=== PATIENT | female | born 1955 | race Caucasian/White ===

== ENCOUNTER → 2023-05-26 08:32 | Outpatient (REF) | payer OTHER, SELFPAY | LOC: HWRAD 08:32 | PROVIDERS: ATTENDING PHYSICIAN Internal Medicine Gastroenterology; FAMILY PHYSICIAN Family Medicine | DX: R05.9 Cough, unspecified (principal) | CPT/HCPCS: 71260; 74177; Q9967 ==

== ENCOUNTER → 2023-06-13 11:29 | Outpatient (REF) | payer OTHER, SELFPAY | LOC: HWWDC 11:29 | PROVIDERS: ATTENDING PHYSICIAN Family Medicine | DX: Z12.31 Encounter for screening mammogram for malignant neoplasm of breast (principal) | CPT/HCPCS: 77063; 77067 ==

== ENCOUNTER 2023-07-25 20:16 | Emergency (ER) | payer OTHER, SELFPAY ==
[2023-07-25 20:20] VITALS: BP 113/64
--- NOTE | 2023-07-25 23:25 | ED.GENMED ---
History of Present Illness
<DALE Austin - Last Filed: 07/26/23 00:03>
General
Chief Complaint: Skin Problem
Source: patient
Exam Limitations: none
Time Seen by Provider: 07/25/23 23:02
Nursing documentation reviewed up to this point in time: agreed with
Travel History
Have you had any contact with someone who has COVID-19?: No
Do you have any symptoms of coronavirus? Fever > 100 degrees, chills, cough, shortness of breath, sore throat, loss of taste or smell, muscle aches, or headache?: No
History of Present Illness
History of Present Illness:
patient is a 67 y/o female with PMH of fibromyalgia presenting for skin changes to her R foot x 5 days. Patient states she had a callus removed by her assistant teaching professor on 07/18/23. Patient on day 4 post op she took the skin mold off that was covering it
and ever since then she has had extreme pain that radiates throughout her body. Patient admits that the pain feels as though its a fibromyalgia flare up, however this has never occurred with a previous callus removal before. Patient admits the pain
surrounding the removal site is a stinging pain that she states feels deep in her foot. Patient admits to taking Tylenol and achieve earlier in the week for pain but no pain medications today. Patient states that earlier this morning the patient
also noticed some redness around the callus removal which prompted her to go to her assistant teaching professor today. [employer] Counter Person confirmed with her that this was not an infection. Patient then went to work and when she returned she noticed a dark ring surrounding
the infection. Patient denies N/V/D/C, fever, chills, pruritus, bleeding, pus, weakness. Patient denies any trauma to the foot since the procedure. Patient presented with purple ring around incision area. Alcohol wipe on the area showed purple dye
and marker residue.
Past History
<DALE Austin - Last Filed: 07/26/23 00:03>
Past History
ED Past Medical History: GERD and Other (Vertigo, fibromyalgia, sciatica, IBS, diverticulitis/colitis)
ED Past Surgical History: Other (Endometriosis)
Social History
Tobacco: Former smoker
Alcohol: Occasional
Drug: None
Personal:
Living: alone
Review of Systems
<DALE Austin - Last Filed: 07/26/23 00:03>
Review of Systems
All Other Systems: Not applicable
Constitutional: Reports other (diffuse pain radiating from foot )
EENT: Reports no symptoms
Respiratory: Reports no symptoms
Cardiac: Reports no symptoms
ABD/GI: Reports no symptoms
: Reports no symptoms
Musculoskeletal: Reports other (pain)
Skin: Reports other (redness and inflammation around callus)
Neurological: Reports no symptoms
Endocrine: Reports no symptoms
Hematologic/Lymphatic: Reports no symptoms
Psychiatric: Reports no symptoms
Phy Exam
<DALE Austin - Last Filed: 07/26/23 00:03>
Physical Exam
Physical Exam:
incision site with purple marking surrounding it
Skin Exam
Skin Exam: other (purple circular ring that can be cleaned off with wipe )
Course
<DALE Austin - Last Filed: 07/26/23 00:03>
Vital Signs
Initial and Last Documented VS:
Initial Vital Signs
Temp Pulse Resp BP Pulse Ox
98.0 F 59 16 113/64 99
07/25/23 20:20 07/25/23 20:20 07/25/23 20:20 07/25/23 20:20 07/25/23 20:20
Last Documented Vital Signs
Temp Pulse Resp BP Pulse Ox
98.0 F 59 16 113/64 99
07/25/23 20:20 07/25/23 20:20 07/25/23 20:20 07/25/23 20:20 07/25/23 20:20
<Endy Devries DO - Last Filed: 07/25/23 23:49>
Vital Signs
Initial and Last Documented VS:
Initial Vital Signs
Temp Pulse Resp BP Pulse Ox
98.0 F 59 16 113/64 99
07/25/23 20:20 07/25/23 20:20 07/25/23 20:20 07/25/23 20:20 07/25/23 20:20
Last Documented Vital Signs
Temp Pulse Resp BP Pulse Ox
98.0 F 59 16 113/64 99
07/25/23 20:20 07/25/23 20:20 07/25/23 20:20 07/25/23 20:20 07/25/23 20:20
<DALE Austin - Last Filed: 07/26/23 00:03>
MDM/Problems Addressed
Differential Diagnosis Includes:
marker around site of incision
infection
MDM/Problems Addressed:
R foot pain
<DALE Austin - Last Filed: 07/26/23 00:03>
*Critical Care Note
Total Time (30-74mins, 75-104mins- exclusive of procedures): Not Applicable
ED Attending Note
<DALE Austin - Last Filed: 07/26/23 00:03>
-
Portions of this chart may have been created with voice recognition software.� Occasional wrong word or��sound alike� substitutions may have occurred due to the inherent limitations of voice recognition software.
<Endy Devries DO - Last Filed: 07/25/23 23:49>
ED Attending Note
Patient seen and examined by attending physician: Yes
I performed the substantive portion of visit, reviewed & personally made and approve the management plan that is documented in note by myself or KAREN.: Yes
ED Attending Note:
Pleasant 67-year-old female presents with pain from a callus removal on July 17. Today is postop day 4. She noticed a blue trinity that encircled the callus operative site. She saw her assistant teaching professor this morning who confirmed to her that there was no
infection. When she got home she saw a blue trinity around the operative site. It turns out that the assistant teaching professor had marked the site with a surgical marker. She did not realize this and when she saw the marker she thought it was an infection. The
assistant teaching professor's trinity was easily removed with an alcohol wipe. Patient was seen in conjunction with the PA student. I have reviewed and agree with the history and treatment plan presented. On my independent physical exam, patient is awake, alert, and
oriented x3, she is anxious. The wound is clean and dry. No signs of erythema or cellulitis. The patient refused pain medication she wants to take her own Aleve at home. Patient being discharged in improved condition.
Discharge Plan
Departure
Patient Disposition: Home (Routine Discharge)
Date of Disposition: 07/25/23
Time of Disposition: 23:46
Patient with high blood pressure during this ER visit?: No
Condition: Good
Discharge Problem:
Post-operative pain
Instructions: Wound Care (DC), Postoperative Pain (DC)
Prescriptions:
No Action
cholecalciferol (vitamin D3) 1,000 UNITS tablet
1,000 units PO BID
Hair, Skin and Nails Advanced 1 EACH tablet
1 ea PO BID
cyclosporine [Restasis] 10 DROPS dropperette
1 drp BOTH EYES BID
Soothe Eye Drops
1 drp BOTH EYES PRN PRN (Reason: dry eyes)
polyethylene glycol 3350 17 GRAMS powder in packet
17 grams PO DAILY 0RF
famotidine 20 MG tablet
20 mg PO BID Qty: 30 0RF
pantoprazole [Protonix] 40 mg tablet,delayed release (DR/EC)
40 mg PO DAILY Qty: 30 0RF
Referrals:
Dominga El MD [Family Provider] -
Activity Restrictions/Additional Instructions:
It was a pleasure meeting you and taking part in your care. We hope for your continued healing and wellness.
Please read discharge instructions in their entirety. However, they are for general education and may not describe your exact diagnosis at discharge. Information on your ER visit and medical conditions were discussed with you along with appropriate
follow up information...
If indicated, please take your medications as instructed and indicated on discharge paperwork.
Please schedule a follow up appointment as directed. Call to schedule an appointment
Please return to the emergency department with ANY change in, persisting, or worsening of symptoms. If any of your symptoms do not improve, or persist, or become more severe within 6-12 hours, please return to the emergency department for further
care.
Please return to the emergency department if you develop a headache, neck pain/stiffness, fever greater than 100.4F, chest pain, shortness of breath, persistent nausea, vomiting, slurred speech, difficulty walking, numbness/tingling, weakness, signs
of infection or any other symptoms that are worrisome to you.
If you have any questions or concerns please do not hesitate to call the Hospital at or E-mail me directly at [email or web address]
Interventions
Interventions:
*Risk Screen - Suicide Last Done: 07/25/23 20:20
*General Assessment Last Done: 07/25/23 20:20
*Neglect/Abuse Screening Last Done: 07/25/23 20:20
ED- Fall Risk Assessment Last Done: 07/25/23 22:17
*ED COVID-19 Vaccine History Last Done: 07/25/23 20:20
ED-Skin Assessment Last Done: 07/25/23 22:17
Discharge Date and Time
Print Language: BULGARIAN
== END 2023-07-26 | disposition home or self-care (01) ==
LOC: EMR 20:16
PROVIDERS: EMERGENCY PHYSICIAN Student in an Organized Health Care Education/Training Program; FAMILY PHYSICIAN Family Medicine
DX: G89.18 Other acute postprocedural pain (principal); M79.671 Pain in right foot; K21.9 Gastro-esophageal reflux disease without esophagitis; M79.7 Fibromyalgia; K58.9 Irritable bowel syndrome, unspecified; K52.9 Noninfective gastroenteritis and colitis, unspecified; K57.92 Diverticulitis of intestine, part unspecified, without perforation or abscess without bleeding; Z87.891 Personal history of nicotine dependence; Z88.1 Allergy status to other antibiotic agents; Z88.5 Allergy status to narcotic agent
CPT/HCPCS: 99282

== ENCOUNTER → 2023-08-22 09:08 | Outpatient (REF) | payer OTHER, SELFPAY | LOC: HWRCS 09:08 | PROVIDERS: ATTENDING PHYSICIAN Internal Medicine Cardiovascular Disease; FAMILY PHYSICIAN Family Medicine | DX: R01.1 Cardiac murmur, unspecified (principal) | CPT/HCPCS: 93306 ==

== ENCOUNTER → 2023-10-27 11:16 | Outpatient (REF) | payer OTHER, SELFPAY | LOC: HWRAD 11:16 | PROVIDERS: ATTENDING PHYSICIAN Family Medicine | DX: M81.8 Other osteoporosis without current pathological fracture (principal) | CPT/HCPCS: 77080 ==

== ENCOUNTER → 2023-12-23 12:54 | Outpatient (REF) | payer OTHER, SELFPAY | LOC: MRI 3T 12:54 | PROVIDERS: ATTENDING PHYSICIAN Podiatrist Foot Surgery; FAMILY PHYSICIAN Family Medicine | DX: M79.671 Pain in right foot (principal) | CPT/HCPCS: 73718 ==

== ENCOUNTER → 2024-07-19 08:24 | Outpatient (REF) | payer OTHER, SELFPAY | LOC: REG 08:24 | PROVIDERS: ATTENDING PHYSICIAN Nurse Practitioner Family | DX: R06.02 Shortness of breath (principal) | CPT/HCPCS: 71046 ==

== ENCOUNTER → 2024-08-05 09:39 | Outpatient (REF) | payer OTHER, SELFPAY | LOC: HWWDC 09:39 | PROVIDERS: ATTENDING PHYSICIAN Nurse Practitioner Family; REFERRING PHYSICIAN Obstetrics & Gynecology Gynecology | DX: Z12.31 Encounter for screening mammogram for malignant neoplasm of breast (principal) | CPT/HCPCS: 77063; 77067 ==

== ENCOUNTER 2024-12-02 22:17 | Observation (INO) | payer OTHER, SELFPAY ==
[2024-12-02] VITALS (16 sets, daily range): BP systolic 74–110; BP diastolic 41–82; PULSE 96–115; BMI 24.8; BMI 23.5
--- NOTE | 2024-12-02 17:25 | ED.GENMED ---
History of Present Illness
General
Chief Complaint: Blood Pressure Problem
Source: patient
Exam Limitations: none
Time Seen by Provider: 12/02/24 17:07
Nursing documentation reviewed up to this point in time: agreed with
History of Present Illness
History of Present Illness:
Patient presents to ED secondary to severe generalized weakness and fatigue with multiple episodes of near syncope, after having had countless number of diarrhea, since this morning. Of note, 3 days ago, while she was at work, patient reports
'upset stomach', followed by bowel movement. Over the next 2 days, patient states that her symptoms had resolved and she had normal diet, until this morning. Denies fever or chills. Denies chest pain or shortness of breath. Patient reports
squeezing sensation in her stomach. Denies trauma. Denies sick contact. Denies recent travel. Of note, patient is currently on tapered dose of prednisone, down to 6 mg daily, secondary to polymyalgia rheumatica.
Past History
Past History
ED Past Medical History: GERD and Other (Vertigo, fibromyalgia, sciatica, IBS, diverticulitis/colitis)
ED Past Surgical History: Other (Endometriosis)
Social History
Tobacco: Former smoker
Alcohol: Occasional
Drug: None
Personal:
Living: alone
Review of Systems
Review of Systems
Allergies reviewed?: Yes
All Other Systems: ROS reviewed and negative except as documented in HPI and ROS
Constitutional: Reports no symptoms; Denies fever
Respiratory: Reports no symptoms
Cardiac: Reports no symptoms
ABD/GI: Reports abdominal pain, nausea and diarrhea; Denies vomiting
Musculoskeletal: Reports no symptoms
Skin: Reports no symptoms
Neurological: Reports weakness
Phy Exam
Physical Exam
Physical Exam:
Physical Exam
General: mild distress, not acutely ill. afebrile
Head: nc/at. eomi
Neck: supple. no meningeal signs.
Heart: tachycardic without murmur.
Lungs: no acute respiratory distress. clear bilaterally
Abdomen: normal bowel sounds. not tender. no distention
Neuro: alert and oriented x 3. no focal neurological deficits
Skin: no rash
Psychiatric: well kept. interactive and cooperative
Extremities: no edema. no calf tenderness.
Course
Orders/Labs/Results
Orders:
Orders
12/02/24 17:14
Complete Blood Count/With Diff Urgent
Comprehensive Metabolic Panel Urgent
Magnesium Urgent
Comment: ADD ON
12/02/24 17:22
Add On- LAB Urgent
Tests Added?: magnesium
12/02/24 17:23
0.9% Sodium Chloride 1000 ml [Nss] 1,000 ml IV BOLUS
12/02/24 19:32
Calcium 200mg(Ca. Carb. 500mg) [Tums Chewable Tablet] 200 mg PO NOW STA
12/02/24 20:50
Stool Culture Urgent
NAYA Source: Feces/Stool
Specimen Description:
Date Specimen was Collected: 12/02/24
Time Specimen was Collected: 20:45
12/02/24 21:00
0.9% Sodium Chloride 500 ml [Nss] 500 ml IV 100 mls/hr
12/02/24 21:39
Admit/Transfer Patient As Directed
Co-Sign Provider:
Level of Care: Observation services
Assign to:: Medical/Surgical
Physician / Group: Dorie
Diagnosis: Gastroenteritis
PRN Pain Medication Management As Directed
May give lesser potent ordered pain med per pt: Yes
preference::
Protocol:: Medication orders for pain may be administered in a
manner that supports deferring to patient preference
when the pt is:
- Requesting an ordered lesser potent pain medication.
Least to most potent pain medications are defined
as: acetaminophen < NSAID < tramadol < opioids
(morphine, oxycodone, hydromorphone).
- Requesting a lesser dose of the same medication IF
ORDERED.
- Requesting a less intrusive route of administration
if both routes are prescribed by the provider (PO <
IV).
12/02/24 21:40
Code Status As Directed
Resuscitation Status: Full Code
Abnormal Lab Results
12/02/24
17:14
WBC 23.0 H 10^3/uL
(4.8-10.8)
RBC 4.18 L 10^6/uL
(4.20-5.40)
MCHC 32.4 L g/dL
(33.0-37.0)
Abs Immat Gran (auto) 0.1 H 10^3/uL
(0-0.05)
Absolute Neuts (auto) 20.4 H 10^3/uL
(1.4-6.5)
Absolute Lymphs (auto) 0.6 L 10^3/uL
(1.2-3.4)
Absolute Monos (auto) 1.9 H 10^3/uL
(0.1-0.6)
Neutrophils % 88.6 H %
(42.2-75.2)
Lymphocytes % 2.4 L %
(20.5-51.1)
BUN 18 H mg/dl
(7-17)
Glucose 124 H mg/dl
(70-99)
12/02/24 17:14
12/02/24 17:14
Vital Signs
Initial and Last Documented VS:
Initial Vital Signs
Temp Pulse Resp BP Pulse Ox
98.6 F 96 16 85/48 96
12/02/24 16:59 12/02/24 16:59 12/02/24 16:59 12/02/24 16:59 12/02/24 16:59
Last Documented Vital Signs
Temp Pulse Resp BP Pulse Ox
98.6 F 94 17 100/63 98
12/02/24 16:59 12/02/24 21:30 12/02/24 21:30 12/02/24 21:30 12/02/24 19:45
MDM/Problems Addressed
MDM/Problems Addressed:
History and exam consistent with significant dehydration from severe diarrhea. Patient remains symptomatic with positive orthostatic vital signs, despite receiving 2 L IV fluids. As such, patient will be admitted for further evaluation and
treatment, including continue IV hydration.
Stool culture pending.
*Pulse Oximetry
SaO2: 96
Oxygen Mode of Delivery: Room air
Patient hypoxic: no
*Critical Care Note
Total Time (30-74mins, 75-104mins- exclusive of procedures): Not Applicable
ED Attending Note
-
Portions of this chart may have been created with voice recognition software.� Occasional wrong word or��sound alike� substitutions may have occurred due to the inherent limitations of voice recognition software.
Discharge Plan
Departure
Patient Disposition: Admit
Date of Disposition: 12/02/24
Time of Disposition: 20:45
Admit to: Med/Surg
Presentation/result/management discussed w/ accepting MD/DO: Hospitalist
Discharge Problem:
Orthostatic hypotension, Diarrhea
Interventions
Interventions:
*Risk Screen - Suicide Last Done: 12/02/24 16:59
*General Assessment Last Done: 12/02/24 16:59
*Neglect/Abuse Screening Last Done: 12/02/24 16:59
*ED- Fall Risk Assessment Last Done: 12/02/24 16:59
*ED COVID-19 Vaccine History Last Done: 12/02/24 16:59
*Nursing Disposition Last Done: 12/02/24 23:02
ED- Cardiac Assessment Last Done: 12/02/24 17:30
ED- Neurological Assessment Last Done: 12/02/24 17:30
ED- Pulmonary Assessment Last Done: 12/02/24 17:30
[2024-12-02 17:39] LABS: ALT (SGPT) 26 U/L (0-35); AST (SGOT) 31 U/L (14-36); Albumin 3.8 g/dl (3.5-5.0); Alkaline Phosphatase 122 U/L (38-126); Blood Urea Nitrogen 18 mg/dl (7-17); Calcium 9.2 mg/dl (8.4-10.2); Carbon Dioxide 24 mmol/L (22-30); Chloride 103 mmol/L (98-107); Estimated Creatinine Clearance 60 ml/min; Glucose 124 mg/dl (70-99); Hematocrit 37.6 % (37.0-47.0); Hemoglobin 12.2 g/dL (12.0-16.0); Magnesium 2.3 mg/dl (1.6-2.3); Mean Corp Hgb Conc. 32.4 g/dL (33.0-37.0); Mean Corpuscular Volume 90.0 fL (81.0-99.0); Platelet Count 274 10^3/uL (130-400); Potassium 4.0 mmol/L (3.5-5.1); Red Cell Dist. Width 13.9 % (11.5-14.5); Sodium 136 mmol/L (135-145); Total Protein 6.3 g/dl (6.3-8.2); eGFR > 60.00
[2024-12-02] MEDS: NSS 1000 IV (18:02)
[2024-12-02 18:24] LABS: Nucleated Red Blood Cells % 0 %
[2024-12-02] MEDS: TUMS CHEWABLE TABLET 200 MG PO (19:41)
[2024-12-02] MEDS: NSS 500 IV (20:58)
--- NOTE | 2024-12-02 21:18 | HPS.HSE ---
Family Physician
-
Family Physician: Dominga El MD
Chief Complaint
-
Dizziness
History of Present Illness
This is a 69-year-old female with past medical history significant for irritable bowel syndrome, fibromyalgia, polymyalgia rheumatica for which she is on a prednisone taper presenting to the emergency department with acute episode of diarrhea
lightheadedness dizziness and weakness with collapse at home.
Patient reported that she had last regular meal on Monday when she developed some abdominal discomfort. She had mild nausea but no vomiting. She was able to tolerate p.o. on Monday. However by Monday morning she started having profuse diarrhea.
She reports having diarrheal episode every 15 minutes up until around 4 PM. At 4 PM she attempted to hydrate herself. When she got up to walk to her kitchen for some water she felt very lightheaded and then her legs just gave way. She denied
passing out. She was feeling so weak and she said to call 911.
She has not had any fevers or chills. She denies any recent antibiotic use. She has no prior history of inflammatory bowel disease, GI bleed or any recent colonoscopy.
In the emergency department patient was afebrile, blood pressure was 90/50 but as low as 70 systolic with ambulation. She was tachycardic to the low 100. She has a white count of 23, hemoglobin and platelets were normal. Electrolytes BUN and
creatinine were in the normal range.
Medical History
Past Medical History
Past Medical History: Reports Other (Polymyalgia rheumatica, irritable bowel syndrome, idiopathic hypotension, GERD)
Past Surgical History: Reports Gynocological
Social History
Tobacco: Non-smoker
Alcohol: None
Drug: None
Family History
Family History: Not pertinent
Allergies / Home Medications
Allergies reflects when Allergies were last updated in [facility].
Home Medications with original date entered in [facility]
Allergy/Medication List:
Allergies
Allergy/AdvReac Type Severity Reaction Status Date / Time
levofloxacin (From Levaquin) Allergy Unknown Verified 07/25/23 20:20
metronidazole (From Flagyl) Allergy Unknown Verified 07/25/23 20:20
hydrocodone (From Vicodin) AdvReac stomach Verified 07/25/23 20:20
pain
Home Medications
carboxymethylcellulose 0.5 %-glycerin 0.9 % eye drops (Refresh Optive) 1 drp BOTH EYES Q2H ##0 11/14/20
cyclosporine 0.05 % eye drops in a dropperette (Restasis) 1 drp BOTH EYES BID Eye condition 11/14/20
famotidine 20 mg tablet 20 mg PO BID #30 tabs 11/17/20
acetaminophen 325 mg tablet (Tylenol) 650 mg PO Q6HPRN PRN mild pain 12/02/24
calcium 500 mg (as carbonate)-vitamin D3 10 mcg (400 unit) tablet (Calcium 500 + D) 1 tab PO DAILY 12/02/24
magnesium chloride 71.5 mg (magnesium chloride) tablet,delayed release (Slow-Mag) 71.5 mg PO DAILY 12/02/24
nortriptyline 10 mg capsule 10 mg PO HS 12/02/24
polyethylene glycol 3350 17 gram oral powder packet 17 grams PO Q48H 12/02/24
prednisone 1 mg tablet 6 mg PO DAILY 12/02/24
Review of Systems
-
Constitutional: Reports No Symptoms
EENT: Reports No Symptoms
Respiratory: Reports No Symptoms
Cardiac: Reports No Symptoms
Abdomen/GI: Reports Nausea and Diarrhea
: Reports No Symptoms
Musculoskeletal: Reports No Symptoms
Skin: Reports No Symptoms
Neurological: Reports Dizzy and Weakness
Endocrine: Reports No Symptoms
Hematologic/Lymphatic: Reports No Symptoms
Psych: Reports No Symptoms
Physical Exam
Vital Signs
Vital Signs
Temp Pulse Resp BP Pulse Ox
98.6 F 97 14 93/50 98
12/02/24 16:59 12/02/24 21:00 12/02/24 21:00 12/02/24 21:00 12/02/24 19:45
Physical Exam
General: Well Developed, Well Nourished and No Apparent Distress
HEENT: NormoCephalic, Moist mucous membranes and Atraumatic
Respiratory: Clear
Cardiac: S1/S2 and Regular Rhythm; No Murmur or Rub
GI: Soft, Non Tender, Non Distended and Normal Bowel Sounds; No Organomegaly
Rectal: Deferred by Provider
Musculoskeletal: No Clubbing, No Cyanosis and No Edema
Skin: No Rash
Neuro: Nonfocal/grossly intact
Laboratory Results
-
12/02/24 17:14
12/02/24 17:14
Laboratory Results
Total Bilirubin 0.6 mg/dl (0.2-1.3) 12/02/24 17:14
AST 31 U/L (14-36) 12/02/24 17:14
ALT 26 U/L (0-35) 12/02/24 17:14
Alkaline Phosphatase 122 U/L (38-126) 12/02/24 17:14
Data Reviewed
-
Lab Data: Labs Reviewed by me
Old Records: Reviewed
Impression/Plan
-
IMPRESSION:
69-year-old female with history of irritable bowel syndrome and polymyalgia presented to the emergency department with 1 day history of severe profuse diarrhea, leukocytosis to 23 and orthostatic hypotension. She has orthostatic dizziness. She has
continued to have diarrhea in the emergency department although he has slowed down to less than once an hour. She is afebrile and nontoxic-appearing otherwise. She has no cardiac history.
PLAN:
Gastroenteritis -Food poisoning versus viral enteritis.
-Admit to MedSurg observation
-Stool cultures pending
-No recent antibiotics use, did not get CT
-Continue IV fluids while she is having diarrhea, continue with normal saline for now
-Orthostatic vital signs
-Will start Imodium if stool cultures are negative
-Antiemetics
-H2 catarino twice daily
Orthostatic hypotension -patient is likely orthostatic from dehydration, however she has been on chronic prednisone taper for her polymyalgia and could be adrenal insufficiency
- Check a.m. cortisol
- IV fluids as above
- Continue prednisone 5 for now
DVT prophy�SCDs
CODE STATUS�full code
[2024-12-03] MEDS: TYLENOL 650 MG PO (00:07)
[2024-12-03] MEDS: NSS 1000 IV (00:19)
[2024-12-03] MEDS: PEPCID 20 MG PO ×3 (00:19→21:05)
[2024-12-03] MEDS: PAMELOR 10 MG PO ×2 (00:20→21:06)
--- NOTE | 2024-12-03 01:00 | PTCARENOTE ---
Patient arrived from the ED via stretcher at approximately 2320. Patient stood and pivoted from stretcher to bed w/ one person assist - gait steady but patient complaining of mild dizziness. AAOx3, anxious @ times. VSS as documented. Assessment as
documented. Patient oriented to room. Bed in lowest position. Call turner within reach.
[2024-12-03] MEDS: TUMS CHEWABLE TABLET 200 MG PO (06:36)
[2024-12-03 06:58] LABS: Hematocrit 32.7 % (37.0-47.0); Hemoglobin 10.8 g/dL (12.0-16.0); Mean Corp Hgb Conc. 33.0 g/dL (33.0-37.0); Mean Corpuscular Volume 89.6 fL (81.0-99.0); Platelet Count 268 10^3/uL (130-400); Red Cell Dist. Width 14.2 % (11.5-14.5)
[2024-12-03 07:00] VITALS: BP 93/47
[2024-12-03 07:24] LABS: Blood Urea Nitrogen 12 mg/dl (7-17); Calcium 8.4 mg/dl (8.4-10.2); Carbon Dioxide 23 mmol/L (22-30); Chloride 111 mmol/L (98-107); Estimated Creatinine Clearance 81 ml/min; Glucose 90 mg/dl (70-99); Magnesium 2.2 mg/dl (1.6-2.3); Potassium 4.5 mmol/L (3.5-5.1); Sodium 137 mmol/L (135-145); eGFR > 60.00
[2024-12-03 07:47] LABS: Cortisol, Random 6.8 ug/dl
[2024-12-03] MEDS: RESTASIS 0.05% OPHTHALMIC EMULSION 1 DROPS BOTH EYES (09:08)
[2024-12-03] MEDS: DELTASONE 5 MG PO (09:08)
[2024-12-03] MEDS: DELTASONE 1 MG PO (09:09)
--- NOTE | 2024-12-03 13:44 | CM ---
CM following re: discharge planning.
Reviewed pt's chart, met with pt.
Pt is a 69 year old female, admitted with OBS status and primary dx of Gastroenteritis -Food poisoning versus viral enteritis. OBS status explained to the pt, pt expressed her understanding, declined to sign. GARCIA letter placed on chart, pt has a
copy.
Pt reports she lives alone in a condo, no steps, has supportive son who lives in [place], has supportive friends. Pt described herself as independent in al areas [employer], drives, works.
PCP: Dominga El
Pharmacy: [facility]
D/C plan: home with anticipated no needs.
CM will follow with discharge plan updates as hospitalization progresses
--- NOTE | 2024-12-03 14:19 | W.PN.HOSP.TC ---
Today's Communication/Plan
-
Continue oral intake, monitor orthostatic VS, Imodium as needed
Assessment / Plan
Assessment / Plan
69F with IBS and polymyalgia P/W diarrhea, found to have leukocytosis and orthostatic hypotension with dizziness.
Gastroenteritis -Food poisoning versus viral enteritis.
-Stool cultures pending
-No recent antibiotics use, did not get CT
- Received IV fluids and now she does not have an IV anymore so she request to just drink fluids by mouth
start Imodium
-Antiemetics
-H2 catarino twice daily
Orthostatic hypotension -patient is likely orthostatic from dehydration, however she has been on chronic prednisone taper for her polymyalgia and could be adrenal insufficiency
- Checked a.m. cortisol, wnl
- s/p IV fluids as above
- Continue prednisone 5 for now
Encouraged oral intake
DVT prophy�SCDs
CODE STATUS�full code
Anticipated Discharge: Within 24 hours
Subjective/Interval History
-
Date of Service: December 03, 2024
Patient reports some improvement in her diarrhea and dizziness
Objective Data
-
Labs:
Laboratory Results
12/03/24
06:11
WBC 13.7 H
Hgb 10.8 L
Hct 32.7 L
Plt Count 268
Sodium 137
Potassium 4.5
Chloride 111 H
Carbon Dioxide 23
BUN 12
Creatinine 0.6
Glucose 90
Calcium 8.4
Vital Signs:
Vital Signs
Temp Pulse Resp BP Pulse Ox
98 F 66 20 93/47 98
12/03/24 07:00 12/03/24 07:00 12/03/24 07:00 12/03/24 07:00 12/03/24 07:00
I&O
12/02/24 12/03/24 12/04/24
06:59 06:59 06:59
Intake Total 480 / 480
Balance 480 / 480
Review of Systems
-
All other systems: Reviewed and negative
Physical Exam
-
General: No Apparent Distress
HEENT: Moist Mucous Membranes, Anicteric and PERRLA
Respiratory: Clear to Auscultation; Negative Wheezes, Rales or Rhonchi
Cardiac: Regular Rhythm, S1/S2 and Murmur; Negative Rub or Gallop
GI: Soft, Nontender, Nondistended and Normal Bowel Sounds
Musculoskeletal: No Edema
Skin: Warm and Dry; Negative Rash, Ulcers or Lesions
Neuro: Awake and AO x 3
Hematologic / Lymphatic: No Lymphadenopathy
Psych: Calm
Data Reviewed
-
Labs: Labs Reviewed by me and Discussed with Patient
[2024-12-03 15:01] VITALS: BP 108/53
[2024-12-03 16:01] VITALS: BP 101/58; BP 102/55; BP 108/53; PULSE 68; PULSE 74; PULSE 85
[2024-12-03] MEDS: RESTASIS 0.05% OPHTHALMIC EMULSION BOTH EYES (20:11)
[2024-12-03 23:08] VITALS: BP 111/53
--- NOTE | 2024-12-04 03:28 | DOWNTIME ---
There was a [employer] Downtime on 12/04/2024 from 0100 to 12/04/2024 at 0235. Downtime documentation of patient's care, including medication administrations, has been reconciled in the electronic record per guidelines. Refer to the
patient's paper chart under the miscellaneous tab to see printed paper medication records and downtime forms.
[2024-12-04 07:00] VITALS: BP 102/79
[2024-12-04 07:16] LABS: Hematocrit 35.9 % (37.0-47.0); Hemoglobin 11.4 g/dL (12.0-16.0); Mean Corp Hgb Conc. 31.8 g/dL (33.0-37.0); Mean Corpuscular Volume 90.2 fL (81.0-99.0); Nucleated Red Blood Cells % 0 %; Platelet Count 277 10^3/uL (130-400); Red Cell Dist. Width 14.1 % (11.5-14.5)
[2024-12-04 07:47] LABS: ALT (SGPT) 30 U/L (0-35); AST (SGOT) 32 U/L (14-36); Albumin 3.7 g/dl (3.5-5.0); Alkaline Phosphatase 93 U/L (38-126); Blood Urea Nitrogen 13 mg/dl (7-17); Calcium 8.6 mg/dl (8.4-10.2); Carbon Dioxide 26 mmol/L (22-30); Chloride 109 mmol/L (98-107); Estimated Creatinine Clearance 69 ml/min; Glucose 84 mg/dl (70-99); Potassium 4.0 mmol/L (3.5-5.1); Sodium 139 mmol/L (135-145); Total Protein 6.2 g/dl (6.3-8.2); eGFR > 60.00
[2024-12-04] MEDS: RESTASIS 0.05% OPHTHALMIC EMULSION BOTH EYES (08:40)
[2024-12-04] MEDS: PEPCID PO (08:40)
[2024-12-04] MEDS: DELTASONE 5 MG PO (08:40)
[2024-12-04] MEDS: DELTASONE 1 MG PO (08:40)
--- NOTE | 2024-12-04 10:00 | W.DCSUMMARY ---
Discharge Summary
Discharge Data
Date of Admission: 12/02/24
Date of Discharge: 12/04/24
Total time spent discharging patient (in min): 31
-
Pending Results: Yes (Final Stool studies)
Hospital Course
Disposition :
Home
Principal Discharge diagnosis :
Gastroenteritis
Orthostatic hypotension
Hospital Course :
69F with IBS and polymyalgia P/W diarrhea, found to have leukocytosis and orthostatic hypotension with dizziness.
Patient was found to have viral enteritis versus food poisoning, treated without any antibiotics, received IV fluids, and encouraged to take p.o., was able to tolerate normal diet, and diarrhea improved. Leukocytosis resolved. After IV fluids
orthostatic hypotension resolved. Cortisol levels were within normal limits.
Discharge exam:
General: No Apparent Distress
HEENT: Moist Mucous Membranes, Anicteric and PERRLA
Respiratory: Clear to Auscultation; Negative Wheezes, Rales or Rhonchi
Cardiac: Regular Rhythm, S1/S2 and Murmur; Negative Rub or Gallop
GI: Soft, Nontender, Nondistended and Normal Bowel Sounds
Musculoskeletal: No Edema
Skin: Warm and Dry; Negative Rash, Ulcers or Lesions
Neuro: Awake and AO x 3
Hematologic / Lymphatic: No Lymphadenopathy
Psych: Calm
Discharge Plan
-
Patient Disposition: Home (Routine Discharge)
Discharge Diagnosis/Procedures: Gastroenteritis
Diet: Regular
Activity: No restrictions
Driving Restrictions: As prior to admission
Instructions: Diarrhea in adults - ED discharge instructions
Referrals:
Dominga El MD [Family Provider, Family Practice]
Prescriptions:
Continued
cyclosporine [Restasis] 10 DROPS dropperette
1 drp BOTH EYES BID
Refresh Optive 0.5-0.9 % Drops
1 drp BOTH EYES Q2H Qty: 0
famotidine 20 MG tablet
20 mg PO BID Qty: 30 0RF
acetaminophen [Tylenol] 325 mg Tablet
650 mg PO Q6HPRN PRN (Reason: mild pain)
prednisone 1 mg Tablet
6 mg PO DAILY
nortriptyline 10 mg Capsule
10 mg PO HS
calcium carbonate-vitamin D3 [Calcium 500 + D] 500 mg-10 mcg (400 unit) Tablet
1 tab PO DAILY
Slow-Mag 71.5 mg Tablet,Delayed Release (Dr/Ec)
71.5 mg PO DAILY
polyethylene glycol 3350 17 GRAMS powder in packet
17 grams PO Q48H
Discharge Orders:
Discharge Patient (As Directed); Ordered 12/04/24
Ordered By: Susu Jiménez
Discharge Date and Time
Print Language: CITIZEN OF [place]
--- NOTE | 2024-12-04 10:47 | CM ---
CM following re: discharge planning.
Reviewed pt's chart, met with [pt.
Discharge order noted. Pt is awre and she stated her therapeutic recreation director will transport home after 12:00 p.m. Pt still OBS status.
No after care VN services indicated.
D/C plan: home no needs. Plumbing Instructor to transport.
[2024-12-04 11:00] VITALS: BP 111/60
--- NOTE | 2024-12-04 11:52 | PTCARENOTE ---
Patient discharged home, transported by friend. No IV or tele pack on patient, vitals taken by tech stable. This RN reviewed discharge instructions with patient who verbalized understanding. Patient dressed and gathered belongings independently.
Patient taken down to main lobby via staff escort and wheelchair.
== END 2024-12-04 12:36 | disposition home or self-care (01) ==
LOC: 2 NORTH 22:17
PROVIDERS: ADMITTING PHYSICIAN Internal Medicine; ATTENDING PHYSICIAN Internal Medicine; EMERGENCY PHYSICIAN Emergency Medicine; FAMILY PHYSICIAN Family Medicine
DX: K52.9 Noninfective gastroenteritis and colitis, unspecified (principal); I95.1 Orthostatic hypotension; M35.3 Polymyalgia rheumatica; Z87.891 Personal history of nicotine dependence; Z79.899 Other long term (current) drug therapy; Z79.52 Long term (current) use of systemic steroids
CPT/HCPCS: 80048; 80053; 82533; 83735; 85025; 85027; 87045; 87046; 87427; 96360; 99285; G0378

== ENCOUNTER 2024-12-05 21:44 | Emergency (ER) | payer OTHER, SELFPAY ==
[2024-12-05 22:15] VITALS: BP 119/75
[2024-12-05 22:43] LABS: Hematocrit 36.9 % (37.0-47.0); Hemoglobin 12.0 g/dL (12.0-16.0); Mean Corp Hgb Conc. 32.5 g/dL (33.0-37.0); Mean Corpuscular Volume 88.7 fL (81.0-99.0); Nucleated Red Blood Cells % 0 %; Platelet Count 329 10^3/uL (130-400); Red Cell Dist. Width 13.9 % (11.5-14.5)
[2024-12-05 23:03] LABS: ALT (SGPT) 33 U/L (0-35); AST (SGOT) 30 U/L (14-36); Albumin 4.7 g/dl (3.5-5.0); Alkaline Phosphatase 87 U/L (38-126); Blood Urea Nitrogen 19 mg/dl (7-17); Calcium 10.1 mg/dl (8.4-10.2); Carbon Dioxide 23 mmol/L (22-30); Chloride 103 mmol/L (98-107); Glucose 103 mg/dl (70-99); Lipase 100 U/L (23-300); Potassium 3.9 mmol/L (3.5-5.1); Sodium 138 mmol/L (135-145); Total Protein 7.7 g/dl (6.3-8.2); eGFR > 60.00
[2024-12-06 01:34] VITALS: BMI 23.9
[2024-12-06 01:38] VITALS: BP 118/67
--- NOTE | 2024-12-06 01:50 | ED.GENMED ---
History of Present Illness
General
Chief Complaint: Abdominal Pain
Source: patient
Exam Limitations: none
Time Seen by Provider: 12/06/24 01:50
Nursing documentation reviewed up to this point in time: agreed with
History of Present Illness
History of Present Illness:
Note:
CHIEF COMPLAINT(S)
Abdominal cramping
HISTORY OF PRESENT ILLNESS
The patient is a 71-year-old female with pmh of IBS, eczema, polymyalgia rheumatica, GERD with a recent hospitalization history, presenting with persistent abdominal pain and cramps. The symptoms appear to have worsened following discharge from the
hospital a few days prior. Initially, the patient experienced diarrhea which resolved by the first night upon admission. She was admitted for continued IV hydration. However, she began to develop significant abdominal pain that intensified after
returning home. While the patient mentions having cramps for several hours today, she notes an improvement in symptoms subsequent to multiple bowel movements. She describes the pain as severe, cramping, and states, 'The pain felt like spasms with
nothing coming out.' The patient reports that the pain has been more generalized, concentrating notably on the left side of the abdomen and below the umbilicus. She also noted scant blood upon self-cleansing, but clarified that it was only present
after wiping and was not noted in the stools. Patient was concerned she could become constipated following the admission and took two doses of miralax which caused return of her diarrhea. Despite having several bowel movements, the patient has
residual discomfort and is concerned about the potential of underlying diverticulitis or colitis, especially since past experiences included extended periods of cramp-like pain. Her diet today included approximately normal amounts of food, although
she questions if her symptoms could have been exacerbated by dietary choices, such as high sugar apple juice. She denies chest pain, shortness of breath, recent antibiotics, recent travel.
CHRONIC MEDICAL CONDITIONS SIGNIFICANTLY AFFECTING CARE
History of low blood pressure, often around 100/60, but improved today.
MEDICATIONS
- Miralax for constipation, taken more frequently lately due to concerns about constipation post-diarrhea.
REVIEW OF SYSTEMS
- Gastrointestinal: Recent diarrhea, resolved. Current abdominal pain described as spasmodic cramps, relieved by recent bowel movements. No blood in stool, but some blood noted externally.
- Urinary: No new urinary symptoms such as dysuria.
PHYSICAL EXAM
General: Alert, no acute distress.
Skin: Warm, dry.
Head: Normocephalic, atraumatic.
Neck: Supple, trachea midline.
Eye, Ears, Nose, Mouth, and Throat: Oral mucosa moist.
Cardiovascular: Regular rate and rhythm, no murmurs. Normal peripheral perfusion, No edema.
Respiratory: Respirations are non-labored.
Gastrointestinal: Abdomen tender, especially on left and below the umbilicus.
Abdomen: Soft and non-tender to palpation
Musculoskeletal: Normal range of motion, normal strength.
Neurological: Alert and oriented to person, place, time, and situation, No focal neurological deficit observed.
Psychiatric: Cooperative, appropriate mood and affect.
PLAN
- Obtain a CT scan to rule out diverticulitis or other acute intraabdominal pathology
- Administer a dose of intravenous Toradol for anti-inflammatory and pain relief purposes.
- Discuss dietary modifications and holding off on Miralax use temporarily given recent extensive diarrhea.
DIFFERENTIAL DIAGNOSIS
The Differential Diagnosis includes, in no particular order and is not limited to:
1. Viral gastroenteritis
2. Diverticulitis
3. Colitis
4. Irritable bowel syndrome
5. Constipation-induced cramps
6. Small bowel obstruction
7. Inflammatory bowel disease
8. Ischemic colitis
9. Pelvic inflammatory disease
10. Food intolerance or allergy
CHART REVIEW
Reviewed discharge summary from 12/04/24 patient seen for gastroenteritis and acute hope attention, she received IV fluids and her diarrhea improved in her cytosis resolved lved. Reviewed external medical summary report reviewed visit from December
2023 patient with chronic constipation uses magnesium and MiraLAX every day .
Reviewed you're official documentation from 06/20/22 patient seen for colitis and was started on Augmentin.
MDM/DISPOSITION
69-year-old female with PMH of IBS he presents an emergency with concerns of episodes of abdominal cramping today following a recent admission for gastroenteritis. She was discharged around three days ago has been doing well. Her diarrhea initially
resolved but then she took two doses of MiraLAX and had subsequent cramping and had an diarrhea again period she did notice blood after wiping but denies blood in the stool or kaleb rectal bleeding. The cramping concerned her as she has been
generally doing well since discharge. Physical exam she's well appearing and in no acute distressed. Abdomen is soft and nontender. She's a febrile. Labs are reviewed, no leukocytosis, labs trending down since admission. CMP shows mild elevation
and BUN. Hemoglobin normal. Patient was given IV fluids.
Considering patient had the pain today, although she is comfortable now, patient was sent for CAT scan which showed colitis. Consider considering that patient is well appearing, a febrile, blood work unremarkable, will hold off on in antibiotics at
this time considering patient is improving since admission. Reviewed case with ED attending. Patient reports that she's not had an episode of abdominal cramping after the Toradol. Discussed close follow up with primary care provider. Reviewed stool
cultures which were negative. Patient stable for discharge.
Past History
Past History
ED Past Medical History: GERD and Other (Vertigo, fibromyalgia, sciatica, IBS, diverticulitis/colitis)
ED Past Surgical History: Other (Endometriosis)
Social History
Tobacco: Former smoker
Alcohol: Occasional
Drug: None
Personal:
Living: alone
Review of Systems
Review of Systems
All Other Systems: ROS reviewed and negative except as documented in HPI and ROS
Phy Exam
Physical Exam
Physical Exam:
see hpi
Course
Orders/Labs/Results
Orders:
Orders
12/05/24 22:34
Complete Blood Count/With Diff Urgent
Comprehensive Metabolic Panel Urgent
Lipase Urgent
12/06/24 02:17
0.9% Sodium Chloride 1000 ml [Nss] 1,000 ml IV BOLUS
Ketorolac [Toradol] 15 mg IV NOW STA
12/06/24 02:18
CT Abd/pelvis W Iv Cont Urgent
Comment:
Reason For Exam: diffuse lower abdominal pain
Abnormal Lab Results
12/05/24
22:34
RBC 4.16 L 10^6/uL
(4.20-5.40)
Hct 36.9 L %
(37.0-47.0)
MCHC 32.5 L g/dL
(33.0-37.0)
BUN 19 H mg/dl
(7-17)
Glucose 103 H mg/dl
(70-99)
12/05/24 22:34
12/05/24 22:34
Vital Signs
Initial and Last Documented VS:
Initial Vital Signs
Temp Pulse Resp BP Pulse Ox
98.2 F 71 16 119/75 100
12/05/24 22:15 12/05/24 22:15 12/05/24 22:15 12/05/24 22:15 12/05/24 22:15
Last Documented Vital Signs
Temp Pulse Resp BP Pulse Ox
98.2 F 71 16 121/60 100
12/05/24 22:15 12/05/24 22:15 12/05/24 22:15 12/06/24 04:00 12/06/24 04:00
*Pulse Oximetry
SaO2: 96
Oxygen Mode of Delivery: Room air
Patient hypoxic: no
*Critical Care Note
Total Time (30-74mins, 75-104mins- exclusive of procedures): Not Applicable
ED Attending Note
-
Portions of this chart may have been created with voice recognition software.� Occasional wrong word or��sound alike� substitutions may have occurred due to the inherent limitations of voice recognition software.
Discharge Plan
Departure
Patient Disposition: Home (Routine Discharge)
Date of Disposition: 12/06/24
Time of Disposition: 06:04
Patient with high blood pressure during this ER visit?: No
Condition: Good
Discharge Problem:
Colitis
Instructions: Colitis, BLOOD PRESSURE
Prescriptions:
No Action
cyclosporine [Restasis] 10 DROPS dropperette
1 drp BOTH EYES BID
Refresh Optive 0.5-0.9 % Drops
1 drp BOTH EYES Q2H Qty: 0
famotidine 20 MG tablet
20 mg PO BID Qty: 30 0RF
acetaminophen [Tylenol] 325 mg Tablet
650 mg PO Q6HPRN PRN (Reason: mild pain)
prednisone 1 mg Tablet
6 mg PO DAILY
nortriptyline 10 mg Capsule
10 mg PO HS
calcium carbonate-vitamin D3 [Calcium 500 + D] 500 mg-10 mcg (400 unit) Tablet
1 tab PO DAILY
Slow-Mag 71.5 mg Tablet,Delayed Release (Dr/Ec)
71.5 mg PO DAILY
polyethylene glycol 3350 17 GRAMS powder in packet
17 grams PO Q48H
Referrals:
Dominga El MD [Family Provider, Family Practice]
Activity Restrictions/Additional Instructions:
Please stay well-hydrated. Please follow-up with your primary care provider with your scheduled appointment.
Continue to monitor your symptoms at home. PLEASE RETURN TO THE EMERGENCY DEPARTMENT SHOULD YOU DEVELOP FEVERS, ACUTE WORSENING OR PERSISTENCE OF YOUR PAIN, CHEST PAIN, SHORTNESS OF BREATH, PERSISTENT RECTAL BLEEDING, DARK TARRY STOOLS, INTRACTABLE
NAUSEA OR VOMITING, OR ANY OTHER SIGNS OR SYMPTOMS WORRISOME TO YOU.
Interventions
Interventions:
*Risk Screen - Suicide Last Done: 12/05/24 22:15
*General Assessment Last Done: 12/05/24 22:15
*Neglect/Abuse Screening Last Done: 12/05/24 22:15
*ED- Fall Risk Assessment Last Done: 12/05/24 22:15
*ED COVID-19 Vaccine History Last Done: 12/05/24 22:15
*Nursing Disposition Last Done: 12/06/24 06:15
IQ-Sanvwn-Fdnlyifqga Assessment Last Done: 12/06/24 01:35
Discharge Date and Time
Discharge Date/Time: 12/06/24 06:15
Print Language: DANISH
[2024-12-06 02:00] VITALS: BP 97/64
[2024-12-06] MEDS: TORADOL 15 MG IV (03:03)
[2024-12-06] MEDS: NSS 1000 IV (03:03)
[2024-12-06 03:08] VITALS: BP 117/65
[2024-12-06 03:10] VITALS: BP 117/65
[2024-12-06 04:00] VITALS: BP 121/60
== END 2024-12-06 06:15 | disposition home or self-care (01) ==
LOC: EMR 21:44
PROVIDERS: EMERGENCY PHYSICIAN Emergency Medicine; FAMILY PHYSICIAN Family Medicine
DX: K52.9 Noninfective gastroenteritis and colitis, unspecified (principal); M35.3 Polymyalgia rheumatica; M79.7 Fibromyalgia; Z87.891 Personal history of nicotine dependence
CPT/HCPCS: 96374; 96361; 99284; 74177; 80053; 83690; 85025; Q9967

== ENCOUNTER 2024-12-18 08:33 | Emergency (ER) | payer OTHER, SELFPAY ==
[2024-12-18 08:40] VITALS: BP 101/68
--- NOTE | 2024-12-18 09:14 | ED.GENMED ---
History of Present Illness
General
Chief Complaint: Bowel Problem
Source: patient
Exam Limitations: none
Time Seen by Provider: 12/18/24 09:05
History of Present Illness
History of Present Illness:
69-year-old female presents with constipation. She has not had any bowel movement in about 12 days. This was preceded by a bout of colitis. She tried MiraLAX for several days a different stool softener as well as took magnesium citrate this
morning. He feels more gassy with magnesium citrate but still has yet to move her bowels. She denies significant abdominal pain. There has been no vomiting. No fever. She is quite healthy otherwise. No chest pain or shortness of breath.
Past History
Past History
ED Past Medical History: GERD and Other (Vertigo, fibromyalgia, sciatica, IBS, diverticulitis/colitis)
ED Past Surgical History: Other (Endometriosis)
Social History
Tobacco: Former smoker
Alcohol: Occasional
Drug: None
Personal:
Living: alone
Phy Exam
Physical Exam
Physical Exam:
General: Well-appearing female no acute respiratory distress
HEENT: Normal cephalic atraumatic heart: Regular rate and rhythm
Lungs: Clear no wheeze
Abdomen is soft nontender nondistended no guarding
Ext: no cyanosis or edema
Skin: Warm, no rash
Course
Orders/Labs/Results
Orders:
Orders
12/18/24 09:30
CR Obstruct Series W/pa Chest Urgent
Reason For Exam: constipation
Vital Signs
Initial and Last Documented VS:
Initial Vital Signs
Pulse Resp BP Pulse Ox
81 16 101/68 99
12/18/24 08:40 12/18/24 08:40 12/18/24 08:40 12/18/24 08:40
Last Documented Vital Signs
Pulse Resp BP Pulse Ox
70 16 117/69 98
12/18/24 12:31 12/18/24 12:31 12/18/24 12:31 12/18/24 12:31
MDM/Problems Addressed
Differential Diagnosis Includes:
Patient with constipation. Abdomen exam soft nondistended. Low suspicion of sterile coral colitis. Will attempt to manually disimpact any rectal impaction
*Pulse Oximetry
SaO2: 99
Oxygen Mode of Delivery: Room air
Patient hypoxic: no
*Critical Care Note
Total Time (30-74mins, 75-104mins- exclusive of procedures): Not Applicable
Update Note
Update Note:
Rectal exam performed with female head of digital in the room. There was no significant rectal stool impaction. X-ray pending to evaluate for stool burden. Clinical exam not concerning for sterile coral colitis with benign abdominal exam
X-rays show small amount of stool throughout the colon. While waiting for x-rays patient had multiple bowel movements. She is feeling better. I recommended continued use of MiraLAX
ED Attending Note
-
Portions of this chart may have been created with voice recognition software.� Occasional wrong word or��sound alike� substitutions may have occurred due to the inherent limitations of voice recognition software.
Discharge Plan
Departure
Patient Disposition: Home (Routine Discharge)
Date of Disposition: 12/18/24
Time of Disposition: 13:44
Patient with high blood pressure during this ER visit?: No
Discharge Problem:
Constipation
Instructions: Constipation, Adult (DC)
Prescriptions:
No Action
cyclosporine [Restasis] 10 DROPS dropperette
1 drp BOTH EYES BID
Refresh Optive 0.5-0.9 % Drops
1 drp BOTH EYES Q2H Qty: 0
famotidine 20 MG tablet
20 mg PO BID Qty: 30 0RF
acetaminophen [Tylenol] 325 mg Tablet
650 mg PO Q6HPRN PRN (Reason: mild pain)
prednisone 1 mg Tablet
6 mg PO DAILY
nortriptyline 10 mg Capsule
10 mg PO HS
calcium carbonate-vitamin D3 [Calcium 500 + D] 500 mg-10 mcg (400 unit) Tablet
1 tab PO DAILY
Slow-Mag 71.5 mg Tablet,Delayed Release (Dr/Ec)
71.5 mg PO DAILY
polyethylene glycol 3350 17 GRAMS powder in packet
17 grams PO Q48H
Referrals:
Dominga El MD [Family Provider, Family Practice]
Activity Restrictions/Additional Instructions:
Continue drinking plenty of liquids. Continue using MiraLAX. Return if worse otherwise follow-up with your doctor
Interventions
Interventions:
*Risk Screen - Suicide Last Done: 12/18/24 09:44
*General Assessment Last Done: 12/18/24 09:44
*Neglect/Abuse Screening Last Done: 12/18/24 09:44
KV-Cyjijd-Ieqkechple Assessment Last Done: 12/18/24 12:32
Discharge Date and Time
Print Language: [place] CITIZEN
[2024-12-18 09:44] VITALS: BMI 23.5
[2024-12-18 12:31] VITALS: BP 117/69
== END 2024-12-18 14:36 | disposition home or self-care (01) ==
LOC: EMR 08:33
PROVIDERS: EMERGENCY PHYSICIAN Emergency Medicine; FAMILY PHYSICIAN Family Medicine
DX: K58.1 Irritable bowel syndrome with constipation (principal); K21.9 Gastro-esophageal reflux disease without esophagitis; M79.7 Fibromyalgia; Z87.891 Personal history of nicotine dependence
CPT/HCPCS: 99283; 74022

== ENCOUNTER 2025-03-03 19:02 | Emergency (ER) | payer OTHER, SELFPAY ==
[2025-03-03 19:19] VITALS: BP 100/54
--- NOTE | 2025-03-03 21:54 | ED.MUSCINJ ---
HPI-Injury
General
Chief Complaint: Musculo-Skeletal Complaint
Source: patient
Exam Limitations: none
Time Seen by Provider: 03/03/25 20:48
Nursing documentation reviewed up to this point in time: agreed with
History of Present Illness-Injury
Is this injury a work related problem?: Yes
Is pt an associate of [facility]?: No
Initial Injury comments:
Patient to emergency department for evaluation of left ankle pain. States she thought she was on the last step when she was actually on the third to the last step, stepped off and fell. She denies hitting her head. She states she was able to get
herself up and continue on with her day. This evening pain suddenly became worse. Now she reports swelling to her ankle. Brought to the ED accompanied by spouse for evaluation.
Past History
Past History
ED Past Medical History: GERD and Other (Vertigo, fibromyalgia, sciatica, IBS, diverticulitis/colitis)
ED Past Surgical History: Other (Endometriosis)
Social History
Tobacco: Former smoker
Alcohol: Occasional
Drug: None
Personal:
Living: alone
Review of Systems
Review of Systems
Allergies reviewed?: Yes
All Other Systems: ROS reviewed and negative except as documented in HPI and ROS
Constitutional: Reports no symptoms
EENT: Reports no symptoms
Respiratory: Reports no symptoms
Cardiac: Reports no symptoms
ABD/GI: Reports no symptoms
: Reports no symptoms
Musculoskeletal: Reports joint pain (Pain and swelling to left ankle.)
Skin: Reports no symptoms
Neurological: Reports no symptoms
Psychiatric: Reports no symptoms
Musculoskeletal Injury Exam
Musculoskeletal Injury Exam
Left Ankle:
Pain with Movement?: Moderate
Tender to palpation?: Moderate
Soft tissue swelling?: Mild
External deformity and angulation?: None
Joint effusion?: None
Contusion?: None
Hematoma-local bleeding into tissue?: None
Strain- Sprain- Tear (Connective tissue injury)?: Moderate
Crepitus with movement?: No
Joint instability?: No
Malalignment/deformity?: No
Range of motion: Limited
Distal skin color and temperature: normal-warm & good color
Capillary Refill: normal
Normal distal neurovascular exam?: Yes
Peripheral Pulses: posterior tibial (left): 3+ and dorsalis pedis (left): 3+
Phy Exam
General Physical Exam
General Presentation: well appearing and mild distress
General age: appears stated age
General Skin: warm and dry
General Habitus: normal
General Mental: alert
Musculoskeletal Exam
Musculoskeletal Exam: neuro vasc intact and other (Achilles intact, no tenderness to base of the fifth metatarsal, proximal tib-fib)
Skin Exam
Skin Exam: normal color, warm/dry and no rash
Psychiatric Exam
Psychiatric Exam: normal mood/affect
Injury Course
Orders/Labs/Results
Orders:
Orders
03/03/25 19:23
Ankle, left 3 view CR [CR Ankle - Left Min 3 Views ] Urgent
Comment:
Reason For Exam: FALL
03/03/25 21:20
Ortho Boot Left- Treatment ONCE
Short or tall?: Tall
*Radiology
Radiology exam reviewed: radiology read reviewed
*Pulse Oximetry
SaO2: 97
Oxygen Mode of Delivery: Room air
Patient hypoxic: no
*Critical Care Note
Total Time (30-74mins, 75-104mins- exclusive of procedures): Not Applicable
Update Note
Update Note:
Patient to the emergency department after falling down approximately 3 steps. Complains of pain to left ankle. Moderate amount of swelling noted to left ankle. Achilles is intact, no tenderness to the base of the fifth, proximal tib-fib. There
are no wounds or bruises present. X-ray reviewed, no fracture noted. Will place in tall orthopedic boot and she will be discharged home. She will continue to ice as needed, Tylenol as needed. She was given the number for orthopedics and will
follow-up if her symptoms are not improving over the course of the next week.
ED Attending Note
-
Portions of this chart may have been created with voice recognition software.� Occasional wrong word or��sound alike� substitutions may have occurred due to the inherent limitations of voice recognition software.
Discharge Plan
Departure
Patient Disposition: Home (Routine Discharge)
Date of Disposition: 03/03/25
Time of Disposition: 21:21
Patient with high blood pressure during this ER visit?: No
Condition: Good
Covid-19: Not Applicable
Discharge Problem:
Ankle sprain
Instructions: Using Cold for Pain, Ankle sprain - ED (DC)
Prescriptions:
No Action
cyclosporine [Restasis] 10 DROPS dropperette
1 drp BOTH EYES BID
Refresh Optive 0.5-0.9 % Drops
1 drp BOTH EYES Q2H Qty: 0
famotidine 20 MG tablet
20 mg PO BID Qty: 30 0RF
acetaminophen [Tylenol] 325 mg Tablet
650 mg PO Q6HPRN PRN (Reason: mild pain)
prednisone 1 mg Tablet
6 mg PO DAILY
nortriptyline 10 mg Capsule
10 mg PO HS
calcium carbonate-vitamin D3 [Calcium 500 + D] 500 mg-10 mcg (400 unit) Tablet
1 tab PO DAILY
Slow-Mag 71.5 mg Tablet,Delayed Release (Dr/Ec)
71.5 mg PO DAILY
polyethylene glycol 3350 17 GRAMS powder in packet
17 grams PO Q48H
Referrals:
Tl Mcdonald MD [Active, Orthopedics]
Referral Note: Follow-up with your symptoms are not improving over the course of the next week.
Dominga El MD [Family Provider, Family Practice]
Stand Alone Forms: Return to Work
Interventions
Interventions:
*Risk Screen - Suicide Last Done: 03/03/25 19:19
*Neglect/Abuse Screening Last Done: 03/03/25 19:19
*Nursing Disposition Last Done: 03/03/25 21:41
ED-Musculoskeletal Assessment Last Done: 03/03/25 20:32
Discharge Date and Time
Discharge Date/Time: 03/03/25 21:51
Print Language: [place]
== END 2025-03-03 21:51 | disposition home or self-care (01) ==
LOC: EMR 19:02
PROVIDERS: EMERGENCY PHYSICIAN Emergency Medicine; FAMILY PHYSICIAN Family Medicine; OTHER PHYSICIAN Student in an Organized Health Care Education/Training Program
DX: S93.402A Sprain of unspecified ligament of left ankle, initial encounter (principal); W19.XXXA Unspecified fall, initial encounter; K21.9 Gastro-esophageal reflux disease without esophagitis; M79.7 Fibromyalgia; K58.9 Irritable bowel syndrome, unspecified; Z87.891 Personal history of nicotine dependence
CPT/HCPCS: 99283; 73610